=== PATIENT | male | born 1990 | race Caucasian/White ===

== ENCOUNTER 2016-10-15 12:37 | Inpatient (IN) | payer MEDICARE, MEDICAID ==
[~2016-10-15] VITALS: Ht 177.8 cm; Wt 82.6 kg
[~2016-10-15 12:37] MED LIST: ARIP15TA3 PO; DIVA500T35 PO; DOCU250C91 PO
[2016-10-15 14:19] VITALS: BP 100/60
[2016-10-15] MEDS ORDERED: ZOLPIDEM TARTRATE 10 MG TABLET PO PRN (14:30)
[2016-10-15] MEDS ORDERED: LORazepam 2 MG TABLET PO PRN (14:30)
[2016-10-15] MEDS ORDERED: HALOPERIDOL 5 MG TABLET PO PRN (14:30)
[2016-10-15 16:00] VITALS: BP 111/65
[2016-10-15] MEDS ORDERED: HALOPERIDOL LACTATE 5 MG/ML VIAL IM ONE (17:15)
[2016-10-15] MEDS ORDERED: LORazepam 2 MG/ML VIAL IM ONE (17:15)
[2016-10-15] MEDS ORDERED: DiphenhydrAMINE HCL 50 MG/ML VIAL IM ONE (17:15)
[2016-10-16 06:06] VITALS: BP 126/76
[2016-10-16 08:21] VITALS: BP 107/60
[2016-10-16] MEDS: DOCUSATE SODIUM 250 MG CAPSULE PO SCH ×2 (08:34→16:25)
[2016-10-16 08:41] LABS: BASOPHILS # (AUTO) 0.01 K/uL (0.00-0.20); BASOPHILS % (AUTO) 0.2 % (0.0-2.0); EOSINOPHILS # (AUTO) 0.08 K/uL (0.00-0.70); EOSINOPHILS % (AUTO) 1.38 % (1.0-6.0); HEMATOCRIT 43.6 % (41-53); HEMOGLOBIN 14.8 g/dL (13.5-17.5); LYMPHOCYTES # (AUTO) 1.5 K/uL (1.0-4.8); LYMPHOCYTES % (AUTO) 24.4 % (22.0-44.0); MEAN CORPUSCULAR HEMOGLOBIN 31.1 pg (26.0-34.0); MEAN CORPUSCULAR HGB CONC 33.9 G/dL (31.0-37.0); MEAN CORPUSCULAR VOLUME 92 fL (80-100); MONOCYTES # (AUTO) 0.3 K/uL (0.1-1.0); MONOCYTES % (AUTO) 5.5 % (2.0-9.0); NEUTROPHILS # (AUTO) 4.1 K/uL (1.8-7.7); NEUTROPHILS % (AUTO) 68.6 % (40.0-70.0); PLATELET COUNT (AUTO) 174 K/uL (150-450); RED BLOOD CELL COUNT(AUTO) 4.76 MIL/uL (4.50-5.90); RED CELL DISTRIBUTION WIDTH 13.6 % (11.5-14.5)
[2016-10-16 09:40] LABS: ALANINE AMINOTRANSFERASE 50 U/L (12-78); ALBUMIN 3.7 g/dL (3.4-5.0); ANION GAP 9 mmol/L (8-16); ASPARTATE AMINOTRANSFERASE 59 U/L (15-37); BILIRUBIN,TOTAL 0.7 mg/dL (0.1-1.0); CALCIUM, TOTAL 9.3 mg/dL (8.8-10.5); CARBON DIOXIDE 28 mmol/L (22-29); CHLORIDE 101 mmol/L (98-107); CREATININE 1.11 mg/dL (0.60-1.30); GLOMERULAR FILTR. RATE CALC > 60 mL/min (>60); POTASSIUM 3.7 mmol/L (3.5-5.1); SODIUM SERUM 138 mmol/L (136-145); THYROID STIMULATING HORMONE 0.96 uIU/mL (0.36-3.74); TOTAL PROTEIN, SERUM 7.2 g/dL (6.4-8.2); UREA NITROGEN, BLOOD 15 mg/dL (7-18)
[2016-10-16 09:52] LABS: CHOL/HDL RATIO 3.9 (4.2-7.3); CREATINE KINASE MB 4.3 ng/mL (0-5); CREATINE KINASE, TOTAL 1122 U/L (39-308); THYROID STIMULATING HORMONE 0.98 uIU/mL (0.36-3.74)
[2016-10-16 16:19] VITALS: BP 115/67
[2016-10-16] MEDS: DIVALPROEX SODIUM 500 MG DR TABLET PO SCH (17:15)
[2016-10-16] MEDS: ARIPiprazole 15 MG TABLET PO SCH (17:15)
[2016-10-16] MEDS: TraZODone HCL 50 MG TABLET PO SCH (20:45)
[2016-10-17 06:31] VITALS: BP 100/55
[2016-10-17] MEDS: DIVALPROEX SODIUM 500 MG DR TABLET PO SCH ×2 (08:20→16:51)
[2016-10-17] MEDS: DOCUSATE SODIUM 250 MG CAPSULE PO SCH ×2 (08:20→16:51)
[2016-10-17] MEDS: ARIPiprazole 15 MG TABLET PO SCH (08:20)
[2016-10-17 08:40] VITALS: BP 101/61
[2016-10-17] MEDS ORDERED: ARIPiprazole ER SUSPENSION 400 MG PRE-FILLED DUAL CHAMBER SYRINGE IM SCH (09:00)
[2016-10-17 14:14] LABS: HEPATITIS Bs ANTIGEN SCREEN P Negative (Negative); HEPATITIS C AB SCREEN <0.1 s/co ratio (0.0-0.9)
[2016-10-17 16:20] VITALS: BP 106/62
[2016-10-17] MEDS: TraZODone HCL 50 MG TABLET PO SCH (20:34)
[2016-10-18 01:18] VITALS: BP_SYST 108; BP_SYST 97; BP_DIAS 6; BP_DIAS 65
[2016-10-18] MEDS ORDERED: TRAZ-144 PO (08:08)
[2016-10-18] MEDS: ARIPiprazole 15 MG TABLET PO SCH (08:09)
[2016-10-18] MEDS: DIVALPROEX SODIUM 500 MG DR TABLET PO SCH (08:09)
[2016-10-18] MEDS: DOCUSATE SODIUM 250 MG CAPSULE PO SCH (08:09)
[2016-10-18] MEDS ORDERED: ARIP400S IM (08:19)
[2016-10-18 08:40] VITALS: BP 103/60
[2016-10-18 09:20] LABS: CREATINE KINASE MB 0.7 ng/mL (0-5); CREATINE KINASE, TOTAL 386 U/L (39-308)
== END 2016-10-18 09:35 | disposition home or self-care (01) | DRG 885 ==
LOC: B2X 14:43
DX: F25.1 Schizoaffective disorder, depressive type (principal); K59.00 Constipation, unspecified; D72.819 Decreased white blood cell count, unspecified; J45.909 Unspecified asthma, uncomplicated; F79 Unspecified intellectual disabilities
CPT/HCPCS: 80074; 82306; 82607; 82746; 83036; 83735; 84436; 84439; 84443; 86592; J0401; J1200; J1630; J2060

== ENCOUNTER 2016-11-11 21:33 | Inpatient (IN) | payer MEDICARE, MEDICAID ==
[~2016-11-11] VITALS: Ht 180.3 cm; Wt 85.5 kg
[~2016-11-11 21:33] MED LIST changes: +ARIP400S IM; +TRAZ-147 PO
[2016-11-11 22:15] LABS: BASOPHILS # (AUTO) 0.08 K/uL (0.00-0.20); BASOPHILS % (AUTO) 1.3 % (0.0-2.0); EOSINOPHILS # (AUTO) 0.04 K/uL (0.00-0.70); EOSINOPHILS % (AUTO) 0.59 % (1.0-6.0); HEMATOCRIT 44.1 % (41-53); HEMOGLOBIN 14.9 g/dL (13.5-17.5); LYMPHOCYTES % (AUTO) 33.8 % (22.0-44.0); MEAN CORPUSCULAR HEMOGLOBIN 30.7 pg (26.0-34.0); MEAN CORPUSCULAR HGB CONC 33.7 G/dL (31.0-37.0); MEAN CORPUSCULAR VOLUME 91 fL (80-100); MONOCYTES # (AUTO) 0.4 K/uL (0.1-1.0); MONOCYTES % (AUTO) 6.7 % (2.0-9.0); NEUTROPHILS # (AUTO) 3.4 K/uL (1.8-7.7); NEUTROPHILS % (AUTO) 57.6 % (40.0-70.0); PLATELET COUNT (AUTO) 228 K/uL (150-450); RED BLOOD CELL COUNT(AUTO) 4.84 MIL/uL (4.50-5.90); RED CELL DISTRIBUTION WIDTH 13.2 % (11.5-14.5)
[2016-11-11 22:38] LABS: ALANINE AMINOTRANSFERASE 55 U/L (12-78); ALBUMIN 4.2 g/dL (3.4-5.0); ANION GAP 10 mmol/L (8-16); ASPARTATE AMINOTRANSFERASE 38 U/L (15-37); BILIRUBIN,TOTAL 0.4 mg/dL (0.1-1.0); CALCIUM, TOTAL 9.4 mg/dL (8.8-10.5); CARBON DIOXIDE 28 mmol/L (22-29); CHLORIDE 102 mmol/L (98-107); CREATININE 1.08 mg/dL (0.60-1.30); GLOMERULAR FILTR. RATE CALC > 60 mL/min (>60); POTASSIUM 3.7 mmol/L (3.5-5.1); SODIUM SERUM 140 mmol/L (136-145); TOTAL PROTEIN, SERUM 7.7 g/dL (6.4-8.2); UREA NITROGEN, BLOOD 13 mg/dL (7-18)
[2016-11-11] MEDS ORDERED: LORazepam 2 MG/ML VIAL ONE (23:39)
[2016-11-11] MEDS ORDERED: HALOPERIDOL LACTATE 5 MG/ML VIAL ONE (23:40)
[2016-11-11] MEDS ORDERED: DiphenhydrAMINE HCL 50 MG/ML VIAL ONE (23:40)
[2016-11-11] MEDS ORDERED: DiphenhydrAMINE HCL 50 MG/ML VIAL IM ONE (23:45)
[2016-11-11] MEDS ORDERED: LORazepam 2 MG/ML VIAL IM ONE (23:45)
[2016-11-11] MEDS ORDERED: HALOPERIDOL LACTATE 5 MG/ML VIAL IM ONE (23:45)
[2016-11-11 23:52] LABS: APPEARANCE,URINE TURBID (CLEAR); GLUCOSE, URINE (UA) NEGATIVE (NEGATIVE); KETONES,URINE NEGATIVE (NEGATIVE); LEUKOCYTE ESTERASE ,URINE SMALL (NEGATIVE); OCCULT BLOOD,URINE NEGATIVE (NEGATIVE); PH,URINE 5.5 (5.0-8.0); PROTEIN,URINE TRACE (NEGATIVE)
[2016-11-11 23:54] LABS: ADD UA MICROSCOPIC YES
[2016-11-11 23:58] LABS: CHOL/HDL RATIO 3.9 (4.2-7.3)
[2016-11-12 00:04] LABS: AMORPHOUS SEDIMENT,UR Moderate /LPF (None Seen); RBC,URINE 0-2 /HPF (0-2)
[2016-11-12 02:10] VITALS: BP 84/49
[2016-11-12 05:36] VITALS: BP 99/56
[2016-11-12 09:00] VITALS: BP 113/63
[2016-11-12] MEDS ORDERED: ALBUTEROL SULFATE HFA 90 MCG/PUFF 8 GM INHALER IH PRN (12:45)
[2016-11-12 16:34] VITALS: BP 108/72
[2016-11-12] MEDS ORDERED: ARIPiprazole ER SUSPENSION 400 MG VIAL IM SCH (17:00)
[2016-11-12] MEDS: TraZODone HCL 100 MG TABLET PO SCH (20:05)
[2016-11-12] MEDS: ZOLPIDEM TARTRATE 10 MG TABLET PO PRN (20:05)
[2016-11-13] MEDS: DOCUSATE SODIUM 250 MG CAPSULE PO SCH (08:14)
[2016-11-13 08:30] VITALS: BP 110/61
[2016-11-13] MEDS: CITALOPRAM HYDROBROMIDE 20 MG TABLET PO SCH (11:50)
[2016-11-13 16:00] VITALS: BP 115/73
[2016-11-13] MEDS: LORazepam 2 MG TABLET PO PRN (18:00)
[2016-11-13] MEDS: TraZODone HCL 100 MG TABLET PO SCH (20:42)
[2016-11-14 07:49] LABS: ALANINE AMINOTRANSFERASE 47 U/L (12-78); ALBUMIN 3.6 g/dL (3.4-5.0); ANION GAP 9 mmol/L (8-16); ASPARTATE AMINOTRANSFERASE 35 U/L (15-37); BILIRUBIN,TOTAL 0.4 mg/dL (0.1-1.0); CARBON DIOXIDE 28 mmol/L (22-29); CHLORIDE 103 mmol/L (98-107); CREATINE KINASE MB 2.5 ng/mL (0-5); CREATINE KINASE, TOTAL 317 U/L (39-308); CREATININE 1.05 mg/dL (0.60-1.30); GLOMERULAR FILTR. RATE CALC > 60 mL/min (>60); POTASSIUM 4.1 mmol/L (3.5-5.1); SODIUM SERUM 140 mmol/L (136-145); UREA NITROGEN, BLOOD 11 mg/dL (7-18)
[2016-11-14] MEDS: CITALOPRAM HYDROBROMIDE 20 MG TABLET PO SCH (07:55)
[2016-11-14] MEDS: DOCUSATE SODIUM 250 MG CAPSULE PO SCH (07:55)
[2016-11-14 08:44] VITALS: BP 121/68
[2016-11-14 16:03] VITALS: BP 128/75
[2016-11-14] MEDS: LORazepam 2 MG TABLET PO PRN (20:07)
[2016-11-14] MEDS: TraZODone HCL 100 MG TABLET PO SCH (20:08)
[2016-11-15 08:29] VITALS: BP 103/61
[2016-11-15] MEDS: CITALOPRAM HYDROBROMIDE 20 MG TABLET PO SCH (08:44)
[2016-11-15] MEDS: DOCUSATE SODIUM 250 MG CAPSULE PO SCH (08:44)
[2016-11-15] MEDS ORDERED: MAG HYDROX/AL HYDROX/SIMETH 30 ML SUSP UDCUP PO PRN (10:00)
[2016-11-15] MEDS: PANTOPRAZOLE SODIUM 40 MG DR TABLET PO SCH (11:05)
[2016-11-15] MEDS: HALOPERIDOL 5 MG TABLET PO PRN (16:15)
[2016-11-15] MEDS: LORazepam 2 MG TABLET PO PRN (16:15)
[2016-11-15 17:24] VITALS: BP 120/76
[2016-11-15] MEDS: TraZODone HCL 100 MG TABLET PO SCH (21:30)
[2016-11-16] MEDS: ZOLPIDEM TARTRATE 10 MG TABLET PO PRN (00:04)
[2016-11-16 00:14] VITALS: BP 109/79
[2016-11-16 07:49] LABS: ALANINE AMINOTRANSFERASE 47 U/L (12-78); ANION GAP 7 mmol/L (8-16); ASPARTATE AMINOTRANSFERASE 28 U/L (15-37); BILIRUBIN,TOTAL 0.3 mg/dL (0.1-1.0); CALCIUM, TOTAL 9.5 mg/dL (8.8-10.5); CARBON DIOXIDE 30 mmol/L (22-29); CHLORIDE 102 mmol/L (98-107); CREATINE KINASE MB 0.8 ng/mL (0-5); CREATINE KINASE, TOTAL 96 U/L (39-308); CREATININE 1.01 mg/dL (0.60-1.30); GLOMERULAR FILTR. RATE CALC > 60 mL/min (>60); POTASSIUM 4.2 mmol/L (3.5-5.1); SODIUM SERUM 139 mmol/L (136-145); TOTAL PROTEIN, SERUM 7.6 g/dL (6.4-8.2); UREA NITROGEN, BLOOD 13 mg/dL (7-18)
[2016-11-16 08:39] VITALS: BP 120/66
[2016-11-16] MEDS: PANTOPRAZOLE SODIUM 40 MG DR TABLET PO SCH (09:16)
[2016-11-16] MEDS: CITALOPRAM HYDROBROMIDE 20 MG TABLET PO SCH (09:17)
[2016-11-16] MEDS: DOCUSATE SODIUM 250 MG CAPSULE PO SCH (09:17)
[2016-11-16] MEDS: HALOPERIDOL 5 MG TABLET PO PRN (17:06)
[2016-11-16] MEDS: LORazepam 2 MG TABLET PO PRN (17:06)
[2016-11-16] MEDS: TraZODone HCL 100 MG TABLET PO SCH (21:28)
[2016-11-16 21:52] VITALS: BP 120/76
[2016-11-17 00:33] VITALS: BP 115/64
[2016-11-17] MEDS: ZOLPIDEM TARTRATE 10 MG TABLET PO PRN (00:33)
[2016-11-17] MEDS: LORazepam 2 MG TABLET PO PRN ×3 (00:33→17:04)
[2016-11-17] MEDS: CITALOPRAM HYDROBROMIDE 20 MG TABLET PO SCH (07:59)
[2016-11-17] MEDS: PANTOPRAZOLE SODIUM 40 MG DR TABLET PO SCH (07:59)
[2016-11-17] MEDS: DOCUSATE SODIUM 250 MG CAPSULE PO SCH (07:59)
[2016-11-17] MEDS: HALOPERIDOL 5 MG TABLET PO PRN ×2 (08:00→17:04)
[2016-11-17 08:51] VITALS: BP 121/60
[2016-11-17 16:00] VITALS: BP 138/92
[2016-11-17] MEDS: TraZODone HCL 100 MG TABLET PO SCH (21:32)
[2016-11-18 09:00] VITALS: BP 141/87
[2016-11-18] MEDS: DOCUSATE SODIUM 250 MG CAPSULE PO SCH (09:29)
[2016-11-18] MEDS: PANTOPRAZOLE SODIUM 40 MG DR TABLET PO SCH (09:29)
[2016-11-18] MEDS: CITALOPRAM HYDROBROMIDE 20 MG TABLET PO SCH (09:30)
[2016-11-18 16:12] VITALS: BP 109/70
[2016-11-18] MEDS: LORazepam 2 MG TABLET PO PRN (16:39)
[2016-11-18] MEDS: TraZODone HCL 100 MG TABLET PO SCH (20:41)
[2016-11-18] MEDS: ZOLPIDEM TARTRATE 10 MG TABLET PO PRN (23:53)
[2016-11-19 00:01] VITALS: BP 105/64
[2016-11-19 08:16] VITALS: BP 111/73
[2016-11-19] MEDS: CITALOPRAM HYDROBROMIDE 20 MG TABLET PO SCH (08:20)
[2016-11-19] MEDS: PANTOPRAZOLE SODIUM 40 MG DR TABLET PO SCH (08:20)
[2016-11-19] MEDS: DOCUSATE SODIUM 250 MG CAPSULE PO SCH (08:28)
[2016-11-19] MEDS ORDERED: DEXTRAN 70 0.1%/HYPROMELL 0.3% 0.9 ML OPHTHALMIC SOLUTION [PF] OU PRN (12:30)
[2016-11-19] MEDS: LORazepam 2 MG TABLET PO PRN (12:52)
[2016-11-19 16:40] VITALS: BP 128/74
[2016-11-19] MEDS: TraZODone HCL 100 MG TABLET PO SCH (20:15)
[2016-11-19] MEDS: ZOLPIDEM TARTRATE 10 MG TABLET PO PRN (23:52)
[2016-11-20 00:12] VITALS: BP 123/75
[2016-11-20] MEDS: PANTOPRAZOLE SODIUM 40 MG DR TABLET PO SCH (07:51)
[2016-11-20] MEDS: DOCUSATE SODIUM 250 MG CAPSULE PO SCH ×2 (07:51→09:00)
[2016-11-20] MEDS: CITALOPRAM HYDROBROMIDE 20 MG TABLET PO SCH (07:52)
[2016-11-20 08:07] VITALS: BP 110/71
[2016-11-20] MEDS ORDERED: CITA20TA9 PO (10:42)
[2016-11-20] MEDS ORDERED: PANT40TA25 PO (10:50)
[2016-11-20 16:00] VITALS: BP 114/66
[2016-12-06] MEDS ORDERED: ARIPiprazole ER SUSPENSION 400 MG VIAL IM SCH (09:00)
== END 2016-11-20 16:45 | disposition home or self-care (01) | DRG 885 ==
LOC: EMS 21:36 → 3EC 11-12 00:36
PROVIDERS: ADMIT Psychiatry & Neurology Child & Adolescent Psychiatry
DX: F25.1 Schizoaffective disorder, depressive type (principal); M62.82 Rhabdomyolysis; R45.851 Suicidal ideations; F79 Unspecified intellectual disabilities; F43.10 Post-traumatic stress disorder, unspecified; J45.909 Unspecified asthma, uncomplicated; F90.9 Attention-deficit hyperactivity disorder, unspecified type; K59.00 Constipation, unspecified; G47.00 Insomnia, unspecified; E78.1 Pure hyperglyceridemia; K21.9 Gastro-esophageal reflux disease without esophagitis; F84.0 Autistic disorder; Z53.29 Procedure and treatment not carried out because of patient's decision for other reasons; F41.9 Anxiety disorder, unspecified; R45.87 Impulsiveness; R25.1 Tremor, unspecified; Z91.048 Other nonmedicinal substance allergy status
CPT/HCPCS: 83735; 87081; 96372; 99285; G0480; J0401; J1200; J1630; J2060

== ENCOUNTER 2018-08-14 10:10 | Emergency (ER) | payer MEDICARE, MEDICAID ==
[~2018-08-14] VITALS: Ht 172.7 cm; Wt 84.1 kg
[~2018-08-14 10:10] MED LIST changes: +ARIP15TA2 PO; -ARIP15TA3 PO; +CITA-106 PO; -DIVA500T35 PO; -DOCU250C91 PO; -TRAZ-147 PO
[2018-08-14] MEDS ORDERED: TRAZ-220 PO (11:57)
[2018-08-14] MEDS ORDERED: DIVA-76 PO (11:57)
[2018-08-14 12:06] LABS: BASOPHILS % (AUTO) 0.9 % (0.0-2.0); EOSINOPHILS % (AUTO) 2.4 % (1.0-6.0); HEMATOCRIT 43.2 % (41-53); HEMOGLOBIN 15.1 g/dL (13.5-17.5); LYMPHOCYTES # (AUTO) 1.5 K/uL (1.0-4.8); LYMPHOCYTES % (AUTO) 33.4 % (22.0-44.0); MEAN CORPUSCULAR HEMOGLOBIN 30.4 pg (26.0-34.0); MEAN CORPUSCULAR HGB CONC 34.9 G/dL (31.0-37.0); MEAN CORPUSCULAR VOLUME 87 fL (80-100); MONOCYTES # (AUTO) 0.3 K/uL (0.1-1.0); MONOCYTES % (AUTO) 7.1 % (2.0-9.0); NEUTROPHILS # (AUTO) 2.6 K/uL (1.8-7.7); NEUTROPHILS % (AUTO) 56.2 % (40.0-70.0); PLATELET COUNT (AUTO) 191 K/uL (150-450); RED BLOOD CELL COUNT(AUTO) 4.97 MIL/uL (4.50-5.90); RED CELL DISTRIBUTION WIDTH 12.7 % (11.5-14.5)
[2018-08-14 12:13] LABS: AMPHET/METH SCREEN,URINE NEGATIVE (NEGATIVE); BARBITURATE SCREEN, URINE NEGATIVE (NEGATIVE); BENZODIAZEPINES SCREEN,URINE NEGATIVE (NEGATIVE); CANNABINOID SCREEN,URINE NEGATIVE (NEGATIVE); COCAINE SCREEN,URINE NEGATIVE (NEGATIVE); METHADONE SCREEN, URINE NEGATIVE (NEGATIVE); OPIATE SCREEN,URINE NEGATIVE (NEGATIVE)
[2018-08-14 12:16] LABS: PHENCYCLIDINE SCREEN,URINE NEGATIVE (NEGATIVE)
[2018-08-14 12:30] LABS: ANION GAP 3 mmol/L (8-16); CALCIUM, TOTAL 9.2 mg/dL (8.8-10.5); CARBON DIOXIDE 32 mmol/L (22-29); CHLORIDE 104 mmol/L (98-107); CREATININE 1.11 mg/dL (0.60-1.30); GLOMERULAR FILTR. RATE CALC > 60 mL/min (>60); GLUCOSE,RANDOM 93 mg/dL (70-110); POTASSIUM 3.9 mmol/L (3.5-5.1); SODIUM SERUM 139 mmol/L (136-145); UREA NITROGEN, BLOOD 18 mg/dL (7-18)
[2018-08-14 12:36] LABS: ALANINE AMINOTRANSFERASE 64 U/L (12-78); ALKALINE PHOSPHATASE 79 U/L (46-116); ASPARTATE AMINOTRANSFERASE 32 U/L (15-37); BILIRUBIN,TOTAL 0.5 mg/dL (0.1-1.0); TOTAL PROTEIN, SERUM 7.5 g/dL (6.4-8.2)
[2018-08-14 14:54] VITALS: BP 119/72
== END 2018-08-14 15:36 | disposition home or self-care (01) ==
LOC: EMS 10:13
DX: F25.9 Schizoaffective disorder, unspecified (principal); F69 Unspecified disorder of adult personality and behavior; J45.909 Unspecified asthma, uncomplicated; G47.00 Insomnia, unspecified; F32.9 Major depressive disorder, single episode, unspecified; F43.10 Post-traumatic stress disorder, unspecified; F90.9 Attention-deficit hyperactivity disorder, unspecified type; Z79.899 Other long term (current) drug therapy; Z91.048 Other nonmedicinal substance allergy status
CPT/HCPCS: 36415; 80053; 80307; 85025; 99285; G0480

== ENCOUNTER 2024-03-20 09:59 | Emergency (ER) | payer MEDICARE, OTHER ==
[~2024-03-20] VITALS: Ht 172.7 cm; Wt 86.4 kg
[~2024-03-20 09:59] MED LIST changes: -ARIP15TA2 PO; -CITA-106 PO; +CITA-144 PO; +DIVA-111 PO; +TRAZ-257 PO
[2024-03-20 10:16] VITALS: TEMP 98.1
[2024-03-20 11:24] LABS: BASOPHILS % (AUTO) 0.3 % (0.0-2.0); EOSINOPHILS % (AUTO) 0.2 % (1.0-6.0); HEMATOCRIT 41.4 % (41-53); HEMOGLOBIN 14.3 g/dL (13.5-17.5); LYMPHOCYTES # (AUTO) 1.2 K/uL (1.0-4.8); LYMPHOCYTES % (AUTO) 27.3 % (22.0-44.0); MEAN CORPUSCULAR HEMOGLOBIN 30.7 pg (26.0-34.0); MEAN CORPUSCULAR HGB CONC 34.6 G/dL (31.0-37.0); MEAN CORPUSCULAR VOLUME 89 fL (80-100); MONOCYTES # (AUTO) 0.3 K/uL (0.1-1.0); MONOCYTES % (AUTO) 6.2 % (2.0-9.0); PLATELET COUNT (AUTO) 234 K/uL (150-450); RED BLOOD CELL COUNT(AUTO) 4.67 MIL/uL (4.50-5.90); RED CELL DISTRIBUTION WIDTH 12.5 % (11.5-14.5); WHITE BLOOD COUNT (AUTO) 4.5 K/uL (4.5-11.0)
[2024-03-20 11:31] LABS: ANION GAP 6 mmol/L (8-16); CALCIUM, TOTAL 8.4 mg/dL (8.8-10.5); CARBON DIOXIDE 31 mmol/L (22-29); CHLORIDE 104 mmol/L (98-107); CREATININE 0.99 mg/dL (0.60-1.30); GLOMERULAR FILTR. RATE CALC > 60 mL/min (>60); GLUCOSE,RANDOM 100 mg/dL (70-110); SODIUM SERUM 141 mmol/L (136-145); UREA NITROGEN, BLOOD 9 mg/dL (7-18)
[2024-03-20 11:39] LABS: ALCOHOL, BLOOD (SERUM) < 3 mg/dL (0-10)
[2024-03-20 12:47] LABS: COVID AG,FIA SOURCE NASAL SWAB
[2024-03-20 13:30] VITALS: BP 115/75; PULSE 67; RESP 16; O2SAT 98
[2024-03-20 13:45] LABS: SARS-COV2 (COVID) ANTIGEN,FIA Negative (Negative)
[2024-03-21] MEDS ORDERED: PLEC3TAB2 PO (10:46)
[2024-03-21] MEDS ORDERED: CHLO50TA53 PO (10:46)
[2024-03-21] MEDS ORDERED: MONT-40 PO (10:46)
[2024-03-21] MEDS ORDERED: ATOR10TA69 PO (10:46)
[2024-03-21] MEDS ORDERED: BENZ-247 PO (10:46)
[2024-03-21] MEDS ORDERED: FAMO20 PO (10:46)
[2024-03-21] MEDS ORDERED: LUMA42CA PO (10:46)
[2024-03-21] MEDS ORDERED: OMEP40CA21 PO (10:46)
[2024-03-21] MEDS ORDERED: LORA10TA7 PO (10:46)
== END 2024-03-20 14:28 | disposition short-term general hospital (02) ==
LOC: EMS 10:02
DX: F33.9 Major depressive disorder, recurrent, unspecified (principal); F84.0 Autistic disorder; J45.909 Unspecified asthma, uncomplicated; F20.9 Schizophrenia, unspecified; G47.00 Insomnia, unspecified; Z79.899 Other long term (current) drug therapy; Z20.822 Contact with and (suspected) exposure to COVID-19
CPT/HCPCS: 99285; 87426; 80048; 85025; 36415; G0480

== ENCOUNTER 2024-03-21 10:34 | Emergency (ER) | payer MEDICARE, OTHER ==
[~2024-03-21] VITALS: Ht 175.3 cm; Wt 90.0 kg
[2024-03-21 10:41] VITALS: TEMP 98.3
[2024-03-21] MEDS ORDERED: LUMA42CA PO (10:46)
[2024-03-21] MEDS ORDERED: LORA10TA7 PO (10:46)
[2024-03-21] MEDS ORDERED: ATOR10TA69 PO (10:46)
[2024-03-21] MEDS ORDERED: OMEP40CA21 PO (10:46)
[2024-03-21] MEDS ORDERED: PLEC3TAB2 PO (10:46)
[2024-03-21] MEDS ORDERED: FAMO20 PO (10:46)
[2024-03-21] MEDS ORDERED: CHLO50TA53 PO (10:46)
[2024-03-21] MEDS ORDERED: BENZ-247 PO (10:46)
[2024-03-21] MEDS ORDERED: MONT-40 PO (10:46)
[2024-03-21] MEDS: KETOROLAC TROMETHAMINE 30 MG/ML VIAL IVP ONE (11:02)
[2024-03-21] MEDS: ACETAMINOPHEN 500 MG TABLET PO ONE (11:03)
[2024-03-21 11:07] LABS: BASOPHILS % (AUTO) 0.9 % (0.0-2.0); EOSINOPHILS % (AUTO) 0.5 % (1.0-6.0); HEMATOCRIT 42.3 % (41-53); HEMOGLOBIN 14.8 g/dL (13.5-17.5); LYMPHOCYTES # (AUTO) 1.3 K/uL (1.0-4.8); LYMPHOCYTES % (AUTO) 33.5 % (22.0-44.0); MEAN CORPUSCULAR HEMOGLOBIN 31.2 pg (26.0-34.0); MEAN CORPUSCULAR VOLUME 89 fL (80-100); MONOCYTES # (AUTO) 0.2 K/uL (0.1-1.0); MONOCYTES % (AUTO) 5.6 % (2.0-9.0); NEUTROPHILS # (AUTO) 2.3 K/uL (1.8-7.7); NEUTROPHILS % (AUTO) 59.5 % (40.0-70.0); PLATELET COUNT (AUTO) 235 K/uL (150-450); RED BLOOD CELL COUNT(AUTO) 4.75 MIL/uL (4.50-5.90); RED CELL DISTRIBUTION WIDTH 12.4 % (11.5-14.5); WHITE BLOOD COUNT (AUTO) 3.9 K/uL (4.5-11.0)
[2024-03-21] MEDS ORDERED: IOHEXOL 350 MG/ML 100 ML VIAL ONE (11:27)
[2024-03-21] MEDS ORDERED: 0.9% SODIUM CHLORIDE 10 ML SYRINGE IVP ONE (11:27)
[2024-03-21] MEDS ORDERED: SODIUM CHLORIDE 0.9% 100 ML ONE (11:27)
[2024-03-21 11:31] LABS: ALANINE AMINOTRANSFERASE 73 U/L (12-78); ALBUMIN 3.9 g/dL (3.4-5.0); ALKALINE PHOSPHATASE 149 U/L (46-116); ANION GAP 5 mmol/L (8-16); ASPARTATE AMINOTRANSFERASE 29 U/L (15-37); BILIRUBIN,TOTAL 0.6 mg/dL (0.1-1.0); CARBON DIOXIDE 31 mmol/L (22-29); CHLORIDE 103 mmol/L (98-107); CREATININE 1.05 mg/dL (0.60-1.30); GLOMERULAR FILTR. RATE CALC > 60 mL/min (>60); GLUCOSE,RANDOM 99 mg/dL (70-110); LIPASE 26 U/L (16-77); POTASSIUM 4.4 mmol/L (3.5-5.1); SODIUM SERUM 139 mmol/L (136-145); TOTAL PROTEIN, SERUM 7.5 g/dL (6.4-8.2); UREA NITROGEN, BLOOD 11 mg/dL (7-18)
[2024-03-21 12:29] LABS: APPEARANCE,URINE CLEAR (CLEAR); BILIRUBIN,URINE NEGATIVE (NEGATIVE); COLOR,URINE COLORLESS (YELLOW); GLUCOSE, URINE (UA) NEGATIVE (NEGATIVE); KETONES,URINE NEGATIVE (NEGATIVE); LEUKOCYTE ESTERASE ,URINE NEGATIVE (NEGATIVE); NITRATE,URINE NEGATIVE (NEGATIVE); OCCULT BLOOD,URINE NEGATIVE (NEGATIVE); PH,URINE 7.5 (5.0-8.0); PROTEIN,URINE NEGATIVE (NEGATIVE); SPECIFIC GRAVITIY, URINE 1.033 (1.003-1.030); UROBILINOGEN,URINE <=1.0 mg/dL (<=1.0)
[2024-03-21 13:04] VITALS: BP 122/79; PULSE 79; RESP 14; O2SAT 99
[2024-03-21] MEDS: DOCUSATE SODIUM 100 MG CAPSULE PO ONE (13:53)
== END 2024-03-21 14:06 ==
LOC: EMS 10:43
DX: K59.00 Constipation, unspecified (principal); F12.90 Cannabis use, unspecified, uncomplicated; K21.9 Gastro-esophageal reflux disease without esophagitis; F20.9 Schizophrenia, unspecified; F32.A Depression, unspecified; F41.9 Anxiety disorder, unspecified; F84.0 Autistic disorder; Z79.899 Other long term (current) drug therapy
CPT/HCPCS: 99285; 74177; 96374; 80048; 80076; 81003; 83690; 85025; 36415; Q9967; J1885; J7050